=== PATIENT | male | born 1980 | race Caucasian/White ===

== ENCOUNTER 2021-02-05 07:52 | Day surgery (SDC) | payer BC ==
[~2021-02-05 07:52] MED LIST: Propofol 200 MG/20 ML SDV ONE; fentaNYL 100 MCG/2 ML SDV ONE
--- NOTE | 2021-02-05 10:04 | PCM.PREANE ---
Preanesthetic Assessment - Procedure Proposed Procedure: Colonoscopy - Anesthesia/Transfusion/Family Hx Anesthesia History: Prior Anesthesia Without Reaction Family History of Anesthesia Reaction: No Transfusion History: No Prior Transfusion(s) - Review of Systems General: No Symptoms Pulmonary: No Symptoms, Other (Chronic sinus congestion with multiple allergens) Cardiovascular: No Symptoms, Other (Hypercholesterolemia being diet controlled) Gastrointestinal: No Symptoms Neurological: No Symptoms, Other (New onset joint pain.) Other: Reports: None - Physical Assessment NPO Status Date: 02/04/21 NPO Status Time: 00:00 Height: 1.83 m Weight: 117.934 kg ASA Class: 2 Mental Status: Alert & Oriented x3 Airway Class: Mallampati = 2 Dentition: Reports: Normal Dentition (Roque) Thyro-Mental Finger Breadths: 3 Mouth Opening Finger Breadths: 3 ROM/Head Extension: Full Lungs: Clear to Auscultation, Normal Respiratory Effort Cardiovascular: Regular Rate, Regular Rhythm - Allergies Allergies/Adverse Reactions: Allergies Allergy/AdvReac Type Severity Reaction Status Date / Time No Known Allergies Allergy Verified 02/03/21 11:54 - Blood Blood Available: No - Anesthesia Plan Pre-Op Medication Ordered: None - Acknowledgements Anesthesia Type Planned: General Anesthesia Pt an Appropriate Candidate for the Planned Anesthesia: Yes Alternatives and Risks of Anesthesia Discussed w Pt/Guardian: Yes Pt/Guardian Understands and Agrees with Anesthesia Plan: Yes PreAnesthesia Questionnaire - Past Health History Medical/Surgical History: Denies Medical/Surgical History HEENT History: Reports: None Cardiovascular History: Reports: None Other Respiratory History: has appointment for sleep study next week Gastrointestinal History: Reports: Chronic Diarrhea, Hemorrhoids Genitourinary History: Reports: Other (See Below) Other Genitourinary History: low testosterone Musculoskeletal History: Reports: Fracture Other Musculoskeletal History: hx of fx leg as a child Neurological History: Reports: None Psychiatric History: Reports: None Endocrine/Metabolic History: Reports: Obesity/BMI 30+ Hematologic History: Reports: None Immunologic History: Reports: None Oncologic (Cancer) History: Reports: None Dermatologic History: Reports: None - Past Surgical History Head Surgeries/Procedures: Reports: None HEENT Surgical History: Reports: None Cardiovascular Surgical History: Reports: None GI Surgical History: Reports: Appendectomy, Other (See Below) Other GI Surgeries/Procedures: repair of anal fistula Male Surgical History: Reports: None Musculoskeletal Surgical History: Reports: None - SUBSTANCE USE Tobacco Use Status *Q: Never Tobacco User Recreational Drug Use History: No - HOME MEDS Home Medications: Home Meds Cholecalciferol (Vitamin D3) [Vitamin D3] 400 unit PO DAILY 02/03/21 [History] Glucosamine [Glucosamine Sulfate] 500 mg PO DAILY 02/03/21 [History] Multivitamin 1 tab PO DAILY 02/03/21 [History] - CURRENT (IN HOUSE) MEDS Current Meds: Current Medications Lactated Ringer's (Ringers, Lactated) 1,000 mls @ 125 mls/hr IV ASDIRECTED TALIB Discontinued Medications Fentanyl (Fentanyl 100 Mcg/2 Ml Sdv) Confirm Administered Dose 100 mcg .ROUTE .STK-MED ONE Stop: 02/05/21 07:42 Lidocaine HCl (Lidocaine 1% 5 Ml Sdv) Confirm Administered Dose 5 ml .ROUTE .STK -MED ONE Stop: 02/05/21 07:41 Propofol (Propofol 200 Mg/20 Ml Sdv) Confirm Administered Dose 400 mg .ROUTE .STK-MED ONE Stop: 02/05/21 07:42
[2021-02-05] MEDS ORDERED: Ondansetron 4 MG/2 ML SDV IVPUSH ONE (10:05)
[2021-02-05] MEDS ORDERED: Lactated Ringers 1,000 ML IV SCH ×2 (10:45→15:45)
--- NOTE | 2021-02-05 10:52 | PCM.OPNOTE ---
- General Post-Op/Procedure Note Date of Surgery/Procedure: 02/05/21 Operative Procedure(s): Colonoscopy Findings: normal colonoscopy dictation number [id number] Pre Op Diagnosis: blood in stool,. Family history of colon cancer Post-Op Diagnosis: normal colon Anesthesia Technique: MAC Primary Surgeon: Quincy Barnes Complications: None Condition: Good
--- NOTE | 2021-02-05 10:54 | PCM.POSTAN ---
POST ANESTHESIA ASSESSMENT - MENTAL STATUS Mental Status: Somnolent - VITAL SIGNS Vital Signs: Last Vital Signs Temp 36.1 C 02/05/21 10:48 Pulse 74 02/05/21 10:50 Resp 11 L 02/05/21 10:50 BP 97/52 L 02/05/21 10:50 Pulse Ox 99 02/05/21 10:50 - RESPIRATORY Respiratory Status: Respiratory Rate WNL, Airway Patent, O2 Saturation Stable - CARDIOVASCULAR CV Status: Pulse Rate WNL, Blood Pressure Stable - GASTROINTESTINAL GI Status: No Symptoms - POST OP HYDRATION Hydration Status: Adequate & Stable
--- NOTE | 2021-02-05 10:56 | PCM48HPAN ---
Post Anesthesia Note - EVALUATION WITHIN 48HRS OF ANESTHETIC Vital Signs in Normal Range: Yes Patient Participated in Evaluation: Yes Respiratory Function Stable: Yes Airway Patent: Yes Cardiovascular Function Stable: Yes Hydration Status Stable: Yes Pain Control Satisfactory: Yes Nausea and Vomiting Control Satisfactory: Yes Mental Status Recovered: Yes Vital Signs: Last Vital Signs Temp 36.1 C 02/05/21 10:48 Pulse 74 02/05/21 10:50 Resp 11 L 02/05/21 10:50 BP 97/52 L 02/05/21 10:50 Pulse Ox 99 02/05/21 10:50
--- NOTE | 2021-02-05 15:23 | OR ---
SURGEON: SONAL PACK MD DATE OF PROCEDURE: 02/05/2021 PREOPERATIVE DIAGNOSES: 1. Occasional blood in stool. 2. Family history of colon cancer. PROCEDURE PERFORMED: Colonoscopy. PRIMARY SURGEON: Sonal Pack MD POSTOPERATIVE DIAGNOSIS: Normal colonoscopy. BOWEL PREP: Excellent. LIMITATIONS: None. EXTENT OF COLONOSCOPY: To the cecum. REASON FOR PROCEDURE: Patient is a pleasant 40-year-old gentleman who has never had a colonoscopy before. He says he occasionally gets some blood in his stool when he wipes; however, he accounts this to flare-ups of his hemorrhoids. He denies any change in bowel habits. He says that his stools tend to run a little bit on the looser side. His maternal grandmother had colon cancer. PROCEDURE IN DETAIL: Physical examination was performed. Major risks and benefits associated with procedure were explained to the patient in detail. Patient verbalized understanding and agreement with the same. The patient was then connected to the appropriate monitoring device and IV started. EKG, pulse, pulse ox, blood pressure, and capnography were monitored throughout the entire procedure. Continuous oxygen and sedation were provided by the anesthesiologist. The patient was placed in the left lateral decubitus position. Sedation began. After adequate sedation was achieved, a digital rectal exam was performed. No rectal masses or polyps were felt. Now, a well-lubricated Olympus colonoscope was inserted into the rectum and advanced under direct visualization to the level of the cecum. The cecum was identified with both visual and anatomic landmarks. Photographs were taken of the cecal cap. Scope was then slowly withdrawn in a somewhat circular fashion looking at the color, texture, anatomy, and integrity of the mucosa from the cecum to the anal canal. Patient had some minimal light liquid stool which was suctioned and irrigated for a great look at the mucosa. No polyps or lesions were seen. Scope was retroflexed in the rectum. Scope was then completely removed and the procedure was terminated. ENDOSCOPIC DIAGNOSIS: Normal colonoscopy. RECOMMENDATIONS: Followup colonoscopy in five years given his family history of colon cancer; sooner, if he develops signs and symptoms such as change in bowel habits or blood in his stool. ZEESHAN / ROLAN /[id number]
== END 2021-02-05 11:20 | disposition home or self-care (01) ==
LOC: MW.SDS 07:52
PROVIDERS: ATTEND Surgery
DX: K92.1 Melena (principal); E78.5 Hyperlipidemia, unspecified; E55.9 Vitamin D deficiency, unspecified; E66.9 Obesity, unspecified; Z79.899 Other long term (current) drug therapy; Z98.890 Other specified postprocedural states; Z80.0 Family history of malignant neoplasm of digestive organs; Z90.49 Acquired absence of other specified parts of digestive tract; Z68.35 Body mass index [BMI] 35.0-35.9, adult
CPT/HCPCS: 45378; J2704; J3010; J7120; 00812

== ENCOUNTER 2022-11-10 00:52 | Emergency (ER) | payer BC ==
[2022-11-10] MEDS ORDERED: Cefdinir 300 MG Cap PO ONE (01:20)
== END 2022-11-10 01:27 | disposition home or self-care (01) ==
LOC: MW.ED 00:52
DX: T81.49XA Infection following a procedure, other surgical site, initial encounter (principal); E66.9 Obesity, unspecified; Z68.34 Body mass index [BMI] 34.0-34.9, adult
CPT/HCPCS: 99282; A9270; 99283